=== PATIENT | male | born 1965 | race Caucasian/White ===

== ENCOUNTER 2017-04-17 23:24 | Inpatient (IN) | payer MEDICAID, OTHER ==
[~2017-04-17] VITALS: Ht 182.9 cm; Wt 100.2 kg
[~2017-04-17 23:24] MED LIST: NORCO; XANEX
[2017-04-18] VITALS (8 sets, daily range): BP systolic 98–124; BP diastolic 54–73
[2017-04-18 00:34] LABS: Hematocrit 46.4 % (41.0-53.0); Hemoglobin 13.5 g/dL (13.5-17.5); Mean Corpuscular Hemoglobin 21.3 pg (28.0-32.0); Mean Corpuscular Volume 73.6 fL (80.0-100.0); Platelet Count (auto) 338 10^3/uL (140-450); Red Blood Cells 6.31 10^6/uL (4.5-5.90)
[2017-04-18 00:39] LABS: Red Cell Distribution Width 21.3 % (11.8-14.3)
[2017-04-18 00:45] LABS: Albumin 2.8 g/dL (3.4-5.0); BUN/Creatinine Ratio 26.1; Magnesium 2.7 mg/dL (1.6-2.6); Potassium 4.9 mmol/L (3.5-5.1)
[2017-04-18 00:54] LABS: Bilirubin, Total 3.1 mg/dL (0.2-1.0); Total Protein 7.4 g/dL (6.4-8.2)
[2017-04-18 00:56] LABS: Basophils % (manual) 0 (0.0-2.0); Blast Cells 0; Promyelocytes % 0; Reactive Lymphocytes 0
[2017-04-18 00:59] LABS: Band Neutrophils % (manual) 10; Eosinophils % (manual) 1 (0-7); Lymphocytes % (manual) 8 (10.0-50.0); Metamyelocytes % 1; Monocytes % (manual) 8 (0-12); Myelocytes % 2
[2017-04-18] MEDS ORDERED: SODIUM CHLORIDE 0.9% 1,000 ML IV ONE ×3 (01:45→09:15)
[2017-04-18] MEDS ORDERED: cefTRIAXone 1GM/10ml IVPUSH 10 ML IV ONE (02:15)
[2017-04-18 02:19] LABS: Amylase 31 U/L (25-115); Lipase 440 U/L (73-393)
[2017-04-18] MEDS ORDERED: FUROSEMIDE 20 MG/2 ML VIAL IV ONE (05:45)
[2017-04-18] MEDS ORDERED: SPIRONOLACTONE 25 MG TAB PO ONE (05:45)
[2017-04-18 07:01] LABS: Urine Bacteria FEW /hpf (None Seen); Urine Blood Negative /uL (Negative); Urine Hyaline Cast FEW /lpf (0 - 2); Urine Specific Gravity 1.014 (1.001-1.035); Urine WBC 3 /hpf (0 - 3)
[2017-04-18 07:10] LABS: Alcohol, Urine < 3.0 mg/dL (0-5); Amphetamine Screen, Urine NEGATIVE (NEGATIVE); Barbiturate Scree,Urine NEGATIVE (NEGATIVE); Benzodiazephine Screen, Urine POSITIVE (NEGATIVE); Cannabinoid Screen, Urine POSITIVE (NEGATIVE); Cocaine Screen, Urine NEGATIVE (NEGATIVE); Opiate Scree,Urine POSITIVE (NEGATIVE); Phencyclidine Screen, Urine NEGATIVE (NEGATIVE)
[2017-04-18] MEDS ORDERED: SODIUM CHLORIDE 0.9% 1,000 ML IV SCH (09:15)
[2017-04-18] MEDS ORDERED: PANTOPRAZOLE 40 MG/10 ML VIAL IV ONE (09:15)
[2017-04-18] MEDS ORDERED: AZITHROMYCIN 500MG/ 250ML 250 ML IV ONE (09:15)
[2017-04-18] MEDS ORDERED: PIPERACILLIN-TAZOB 2.25GM 50 ML IV ONE (09:15)
[2017-04-18] MEDS ORDERED: GASTROGRAFIN 30 ML SOL ONE (09:31)
[2017-04-18 09:55] LABS: INR 1.6 (0.9-1.15); Prothrombin Time 17.5 sec (9.37-12.3)
[2017-04-18] MEDS: LINEZOLID 600MG/300ML 300 ML IV SCH (12:54)
[2017-04-18] MEDS ORDERED: MORPHINE SULFATE 4 MG/ML SYR/VIAL IV PRN (14:30)
[2017-04-18] MEDS ORDERED: ALBUTEROL SULF 2.5 MG/0.5ML(0.5%) NEB SOLN NEB PRN (14:30)
[2017-04-18] MEDS ORDERED: NITROGLYCERIN 0.4 MG SL TAB SL PRN (14:30)
[2017-04-18] MEDS ORDERED: LACTULOSE 20Gm/30ML SOLN PO PRN (14:30)
[2017-04-18] MEDS ORDERED: OSELTAMIVIR 75 MG CAP PO ONE (14:30)
[2017-04-18] MEDS ORDERED: OSELTAMIVIR 30 MG CAP PO SCH (14:45)
[2017-04-18] MEDS ORDERED: THIAMINE HCL 100 MG/ML 2ML VIAL IV ONE (15:15)
[2017-04-18] MEDS: PIPERACILLIN-TAZOB 2.25GM 50 ML IV SCH ×2 (16:31→21:51)
[2017-04-18] MEDS: ALBUTEROL SULF 2.5 MG/0.5ML(0.5%) NEB SOLN NEB SCH (18:00)
[2017-04-18] MEDS: IPRATROPIUM BROM 0.5 MG/2.5ML INH SOL NEB SCH (18:00)
[2017-04-18] MEDS ORDERED: SODIUM CHL 3% 500 ML IV ONE (19:45)
[2017-04-18 21:52] LABS: Hemoglobin 13.1 g/dL (13.5-17.5)
[2017-04-18 21:54] LABS: Hematocrit 44.1 % (41.0-53.0); Mean Corpuscular Hemoglobin 21.8 pg (28.0-32.0); Mean Corpuscular Hgb Conc. 29.7 g/dL (32.0-36.0); Mean Corpuscular Volume 73.6 fL (80.0-100.0); Platelet Count (auto) 303 10^3/uL (140-450); Red Blood Cells 5.99 10^6/uL (4.5-5.90); White Blood Cell 19.9 10^3/uL (4.4-10.8)
[2017-04-18] MEDS ORDERED: ALBUMIN 25% 100 ML IV SCH (22:00)
[2017-04-18 22:05] LABS: Calcium 7.9 mg/dL (8.5-10.1); Potassium 4.7 mmol/L (3.5-5.1)
[2017-04-18 22:13] LABS: BUN/Creatinine Ratio 35.1
[2017-04-18 23:16] LABS: Red Cell Distribution Width 21.1 % (11.8-14.3)
[2017-04-18 23:20] LABS: Basophils % (manual) 0 (0.0-2.0); Blast Cells 0; Promyelocytes % 0; Reactive Lymphocytes 0
[2017-04-18 23:22] LABS: Band Neutrophils % (manual) 12; Eosinophils % (manual) 1 (0-7); Lymphocytes % (manual) 14 (10.0-50.0); Metamyelocytes % 2; Monocytes % (manual) 4 (0-12); Myelocytes % 1
[2017-04-19] VITALS (36 sets, daily range): BP systolic 101–135; BP diastolic 51–107
[2017-04-19] MEDS: LINEZOLID 600MG/300ML 300 ML IV SCH ×2 (00:24→11:56)
[2017-04-19] MEDS: ALBUTEROL SULF 2.5 MG/0.5ML(0.5%) NEB SOLN NEB SCH ×4 (00:25→18:38)
[2017-04-19] MEDS: IPRATROPIUM BROM 0.5 MG/2.5ML INH SOL NEB SCH ×4 (00:25→18:39)
[2017-04-19] MEDS: PIPERACILLIN-TAZOB 2.25GM 50 ML IV SCH ×4 (03:41→21:31)
[2017-04-19] MEDS: ALBUMIN 25% 50 ML IV SCH ×3 (06:00→22:17)
[2017-04-19 06:03] LABS: Basophils # (auto) 0.1 uL; Eosinophils # (auto) 0.5 uL; Eosinophils % (auto) 2.6 % (0.0-7.0); Lymphocytes # (auto) 1.2 uL; Lymphocytes % (auto) 7.1 % (10.0-50.0); Monocytes # (auto) 1.1 uL
[2017-04-19 06:06] LABS: Albumin 2.4 g/dL (3.4-5.0); Anion Gap 5 (5-15); Basophils % (auto) 0.5 % (0.0-2.0); Blood Urea Nitrogen 48 mg/dL (7-18); Calcium 7.9 mg/dL (8.5-10.1); Carbon Dioxide 31 mmol/L (21-32); Chloride 90 mmol/L (98-107); Glucose 98 mg/dL (74-106); Hematocrit 43.4 % (41.0-53.0); Hemoglobin 12.7 g/dL (13.5-17.5); Mean Corpuscular Hemoglobin 21.5 pg (28.0-32.0); Mean Corpuscular Hgb Conc. 29.4 g/dL (32.0-36.0); Mean Corpuscular Volume 73.3 fL (80.0-100.0); Monocytes % (auto) 6.3 % (0.0-12.0); Neutrophils # (auto) 14.3 uL; Neutrophils % (auto) 83.5 % (37.0-80.0); Nucleated Red Blood Cells % 2.3 %; Platelet Count (auto) 313 10^3/uL (140-450); Potassium 4.3 mmol/L (3.5-5.1); Red Blood Cells 5.92 10^6/uL (4.5-5.90); Sodium 126 mmol/L (136-145); White Blood Cell 17.1 10^3/uL (4.4-10.8)
[2017-04-19 06:08] LABS: Aspartate Aminotransferase 882 U/L (15-37); BUN/Creatinine Ratio 44.9; GFR African American 94 mL/min; GFR Non-African American 77 mL/min
[2017-04-19 06:15] LABS: Red Cell Distribution Width 21.1 % (11.8-14.3)
[2017-04-19 06:19] LABS: Alanine Aminotransferase 1429 U/L (16-61); Alkaline Phosphatase 102 U/L (45-117); Bilirubin, Total 2.4 mg/dL (0.2-1.0); Total Protein 6.5 g/dL (6.4-8.2)
[2017-04-19] MEDS: AZITHROMYCIN 500MG/ 250ML 250 ML IV SCH (09:04)
[2017-04-19 09:38] LABS: Hepatitis B Surface Antigen Negative (Negative)
[2017-04-19] MEDS: PANTOPRAZOLE 40 MG/10 ML VIAL IV SCH (09:47)
[2017-04-19] MEDS: THIAMINE HCL 100 MG/ML 2ML VIAL IV SCH (09:47)
[2017-04-19 10:01] LABS: Hepatitis B Core IgM Negative; Hepatitis C Antibody Negative (Negative)
[2017-04-19 10:03] LABS: Hepatitis A Ab IgM Negative
[2017-04-19 13:45] LABS: Albumin 2.6 g/dL (3.4-5.0); BUN/Creatinine Ratio 37.1; Calcium 7.8 mg/dL (8.5-10.1)
[2017-04-19 13:55] LABS: Bilirubin, Total 2.4 mg/dL (0.2-1.0); Total Protein 6.7 g/dL (6.4-8.2)
[2017-04-19 19:02] LABS: BUN/Creatinine Ratio 35.2; Calcium 7.3 mg/dL (8.5-10.1); Potassium 4.2 mmol/L (3.5-5.1)
[2017-04-20] VITALS: BP 117/59
[2017-04-20] MEDS: IPRATROPIUM BROM 0.5 MG/2.5ML INH SOL NEB SCH ×4 (00:43→18:51)
[2017-04-20] MEDS: ALBUTEROL SULF 2.5 MG/0.5ML(0.5%) NEB SOLN NEB SCH ×4 (00:43→18:51)
[2017-04-20] MEDS: PIPERACILLIN-TAZOB 2.25GM 50 ML IV SCH ×4 (03:56→21:18)
[2017-04-20 04:00] VITALS: BP 114/72
[2017-04-20 05:04] LABS: Platelet Count (auto) 260 10^3/uL (140-450)
[2017-04-20 05:07] LABS: Hematocrit 43.2 % (41.0-53.0); Hemoglobin 12.4 g/dL (13.5-17.5); Mean Corpuscular Hemoglobin 21.2 pg (28.0-32.0); Mean Corpuscular Hgb Conc. 28.6 g/dL (32.0-36.0); Red Blood Cells 5.84 10^6/uL (4.5-5.90); White Blood Cell 16.9 10^3/uL (4.4-10.8)
[2017-04-20 05:15] LABS: Red Cell Distribution Width 21.1 % (11.8-14.3)
[2017-04-20 05:17] LABS: Basophils % (manual) 0 (0.0-2.0); Blast Cells 0; Myelocytes % 0; Promyelocytes % 0; Reactive Lymphocytes 0
[2017-04-20 05:22] LABS: Albumin 2.8 g/dL (3.4-5.0); BUN/Creatinine Ratio 29.4; Calcium 7.5 mg/dL (8.5-10.1); Magnesium 2.9 mg/dL (1.6-2.6)
[2017-04-20 05:27] LABS: Bilirubin, Total 2.3 mg/dL (0.2-1.0); Total Protein 6.7 g/dL (6.4-8.2)
[2017-04-20 06:08] LABS: Band Neutrophils % (manual) 3; Eosinophils % (manual) 3 (0-7); Lymphocytes % (manual) 8 (10.0-50.0); Metamyelocytes % 1; Monocytes % (manual) 8 (0-12)
[2017-04-20] MEDS: ALBUMIN 25% 50 ML IV SCH (06:26)
[2017-04-20 08:00] VITALS: BP 115/62
[2017-04-20] MEDS: AZITHROMYCIN 500MG/ 250ML 250 ML IV SCH (09:00)
[2017-04-20] MEDS: THIAMINE HCL 100 MG/ML 2ML VIAL IV SCH (10:00)
[2017-04-20] MEDS: PANTOPRAZOLE 40 MG/10 ML VIAL IV SCH (10:17)
[2017-04-20] MEDS: THIAMINE HCL 100 MG TAB PO SCH (10:45)
[2017-04-20 12:00] VITALS: BP 137/68
[2017-04-20] MEDS: ENOXAPARIN SOD 40 MG/0.4 ML SYRINGE SC SCH (12:45)
[2017-04-20] MEDS: methylPREDNISolone SOD SUCC 40 MG/ML VL IV SCH ×2 (12:45→21:19)
[2017-04-20 13:44] LABS: Cholesterol < 50 mg/dL (< 200); HDL Cholesterol 9 mg/dL (40-59); LDL Cholesterol 36 mg/dL (< 100); Triglycerides 132 mg/dL (< 150)
[2017-04-20] MEDS: LINEZOLID 600MG/300ML 300 ML IV SCH ×2 (13:56)
[2017-04-20] MEDS ORDERED: LISI40TA PO (14:24)
[2017-04-20] MEDS ORDERED: AML5T PO (14:24)
[2017-04-20] MEDS ORDERED: LORA-622 PO (14:24)
[2017-04-20] MEDS ORDERED: TRIA50TA2 PO (14:24)
[2017-04-20] MEDS ORDERED: PANT40TA2 PO (14:24)
[2017-04-20] MEDS ORDERED: HYDR-4683 PO (14:24)
[2017-04-20] MEDS ORDERED: ALPR-229 PO (14:24)
[2017-04-20 16:00] VITALS: BP 146/93
[2017-04-20] MEDS: chlordiazePOXIDE HCL 25 MG CAP PO PRN (21:19)
[2017-04-20 22:00] VITALS: BP 136/80
[2017-04-21] MEDS: LINEZOLID 600MG/300ML 300 ML IV SCH ×2 (00:09→13:02)
[2017-04-21] MEDS: chlordiazePOXIDE HCL 25 MG CAP PO PRN ×2 (01:52→13:28)
[2017-04-21] MEDS: IPRATROPIUM BROM 0.5 MG/2.5ML INH SOL NEB SCH ×4 (02:37→20:01)
[2017-04-21] MEDS: ALBUTEROL SULF 2.5 MG/0.5ML(0.5%) NEB SOLN NEB SCH ×4 (02:37→20:01)
[2017-04-21] MEDS: PIPERACILLIN-TAZOB 2.25GM 50 ML IV SCH ×4 (03:16→20:32)
[2017-04-21 05:00] VITALS: BP 130/73
[2017-04-21 06:25] LABS: Hematocrit 42.8 % (41.0-53.0)
[2017-04-21 06:29] LABS: Hemoglobin 12.7 g/dL (13.5-17.5); Mean Corpuscular Hemoglobin 21.8 pg (28.0-32.0); Mean Corpuscular Hgb Conc. 29.6 g/dL (32.0-36.0); Mean Corpuscular Volume 73.5 fL (80.0-100.0); Platelet Count (auto) 252 10^3/uL (140-450); Red Blood Cells 5.82 10^6/uL (4.5-5.90); White Blood Cell 14.6 10^3/uL (4.4-10.8)
[2017-04-21 06:38] LABS: Albumin 2.8 g/dL (3.4-5.0); BUN/Creatinine Ratio 18.2; Bilirubin, Total 2.1 mg/dL (0.2-1.0); Calcium 7.9 mg/dL (8.5-10.1); Total Protein 7.1 g/dL (6.4-8.2)
[2017-04-21 06:46] LABS: Red Cell Distribution Width 21.3 % (11.8-14.3)
[2017-04-21 06:47] LABS: Basophils % (manual) 0 (0.0-2.0); Blast Cells 0; Eosinophils % (manual) 0 (0-7); INR 1.19 (0.9-1.15); Myelocytes % 0; Promyelocytes % 0; Reactive Lymphocytes 0
[2017-04-21 08:00] VITALS: BP 141/76
[2017-04-21 09:17] LABS: Band Neutrophils % (manual) 3; Monocytes % (manual) 3 (0-12)
[2017-04-21 09:18] LABS: Lymphocytes % (manual) 2 (10.0-50.0); Metamyelocytes % 1
[2017-04-21] MEDS: AZITHROMYCIN 500MG/ 250ML 250 ML IV SCH (09:19)
[2017-04-21] MEDS: PANTOPRAZOLE 40 MG/10 ML VIAL IV SCH (11:12)
[2017-04-21] MEDS: methylPREDNISolone SOD SUCC 40 MG/ML VL IV SCH ×2 (11:12→22:04)
[2017-04-21] MEDS: THIAMINE HCL 100 MG TAB PO SCH (11:13)
[2017-04-21] MEDS: ENOXAPARIN SOD 40 MG/0.4 ML SYRINGE SC SCH (11:15)
[2017-04-21 11:57] VITALS: BP 144/81
[2017-04-21] MEDS: OXYCODONE HCL 5MG TAB PO PRN ×2 (13:28→20:32)
[2017-04-21 16:44] VITALS: BP 144/80
[2017-04-21 20:17] VITALS: BP 144/80
[2017-04-21 22:00] VITALS: BP 139/80
[2017-04-21 22:43] LABS: Urine Bacteria NONE SEEN /hpf (None Seen); Urine Blood Negative /uL (Negative); Urine Specific Gravity 1.009 (1.001-1.035); Urine WBC 3 /hpf (0 - 3)
[2017-04-21 22:59] LABS: Protein, Urine 18.1 mg/dL (0.0-11.9)
[2017-04-22] MEDS: IPRATROPIUM BROM 0.5 MG/2.5ML INH SOL NEB SCH ×4 (00:08→18:32)
[2017-04-22] MEDS: ALBUTEROL SULF 2.5 MG/0.5ML(0.5%) NEB SOLN NEB SCH ×4 (00:08→18:32)
[2017-04-22] MEDS: LINEZOLID 600MG/300ML 300 ML IV SCH (00:10)
[2017-04-22] MEDS: chlordiazePOXIDE HCL 25 MG CAP PO PRN ×2 (00:16→10:20)
[2017-04-22] MEDS: OXYCODONE HCL 5MG TAB PO PRN ×4 (01:34→21:08)
[2017-04-22] MEDS: PIPERACILLIN-TAZOB 2.25GM 50 ML IV SCH ×4 (02:39→21:08)
[2017-04-22 05:00] VITALS: BP 138/79
[2017-04-22 05:27] LABS: Hemoglobin 12.7 g/dL (13.5-17.5)
[2017-04-22 05:28] LABS: Hematocrit 43.7 % (41.0-53.0); Mean Corpuscular Hemoglobin 21.5 pg (28.0-32.0); Mean Corpuscular Volume 74.3 fL (80.0-100.0); Platelet Count (auto) 242 10^3/uL (140-450); Red Blood Cells 5.89 10^6/uL (4.5-5.90)
[2017-04-22 05:31] LABS: Red Cell Distribution Width 20.8 % (11.8-14.3)
[2017-04-22 05:33] LABS: Band Neutrophils % (manual) 0; Basophils % (manual) 0 (0.0-2.0); Blast Cells 0; Eosinophils % (manual) 0 (0-7); Metamyelocytes % 0; Myelocytes % 0; Promyelocytes % 0; Reactive Lymphocytes 0
[2017-04-22 05:37] LABS: BUN/Creatinine Ratio 20.3; Calcium 8.1 mg/dL (8.5-10.1)
[2017-04-22 05:39] LABS: Potassium 5.6 mmol/L (3.5-5.1)
[2017-04-22 05:51] LABS: Albumin 2.7 g/dL (3.4-5.0); Bilirubin, Total 1.5 mg/dL (0.2-1.0)
[2017-04-22 06:25] LABS: Lymphocytes % (manual) 3 (10.0-50.0); Monocytes % (manual) 4 (0-12)
[2017-04-22] MEDS ORDERED: SODIUM POLYSTYRENE SULF 15GM/60ML SUSP PO ONE ×2 (06:45→09:45)
[2017-04-22 08:00] VITALS: BP 151/88
[2017-04-22 08:25] VITALS: BP 151/88
[2017-04-22] MEDS: AZITHROMYCIN 500MG/ 250ML 250 ML IV SCH (10:01)
[2017-04-22] MEDS: PANTOPRAZOLE 40 MG/10 ML VIAL IV SCH (10:02)
[2017-04-22] MEDS: methylPREDNISolone SOD SUCC 40 MG/ML VL IV SCH ×2 (10:02→22:10)
[2017-04-22] MEDS: SODIUM CHLORIDE 0.9% 1,000 ML IV SCH ×2 (10:02→19:45)
[2017-04-22] MEDS: ENOXAPARIN SOD 40 MG/0.4 ML SYRINGE SC SCH (10:03)
[2017-04-22] MEDS: THIAMINE HCL 100 MG TAB PO SCH (10:03)
[2017-04-22 11:48] VITALS: BP 141/93
[2017-04-22 17:28] VITALS: BP 141/80
[2017-04-22 22:00] VITALS: BP 150/86
[2017-04-23] MEDS: OXYCODONE HCL 5MG TAB PO PRN ×2 (00:52→05:50)
[2017-04-23] MEDS: IPRATROPIUM BROM 0.5 MG/2.5ML INH SOL NEB SCH ×3 (01:08→11:30)
[2017-04-23] MEDS: ALBUTEROL SULF 2.5 MG/0.5ML(0.5%) NEB SOLN NEB SCH ×3 (01:08→11:30)
[2017-04-23] MEDS: PIPERACILLIN-TAZOB 2.25GM 50 ML IV SCH ×2 (02:30→08:24)
[2017-04-23 05:00] VITALS: BP 147/86
[2017-04-23] MEDS: SODIUM CHLORIDE 0.9% 1,000 ML IV SCH (05:50)
[2017-04-23 06:19] LABS: Basophils # (auto) 0 uL; Eosinophils # (auto) 0 uL; Lymphocytes # (auto) 0.3 uL; Monocytes # (auto) 0.5 uL; Nucleated Red Blood Cells % 0.9 %
[2017-04-23 06:26] LABS: Basophils % (auto) 0.2 % (0.0-2.0); Hematocrit 44.1 % (41.0-53.0); Hemoglobin 12.7 g/dL (13.5-17.5); Lymphocytes % (auto) 1.9 % (10.0-50.0); Mean Corpuscular Hemoglobin 21.6 pg (28.0-32.0); Mean Corpuscular Hgb Conc. 28.9 g/dL (32.0-36.0); Mean Corpuscular Volume 74.7 fL (80.0-100.0); Monocytes % (auto) 3.3 % (0.0-12.0); Neutrophils # (auto) 13.8 uL; Neutrophils % (auto) 94.6 % (37.0-80.0); Platelet Count (auto) 275 10^3/uL (140-450); Red Cell Distribution Width 21.5 % (11.8-14.3); White Blood Cell 14.5 10^3/uL (4.4-10.8)
[2017-04-23 06:41] LABS: Albumin 2.7 g/dL (3.4-5.0); BUN/Creatinine Ratio 26.2; Bilirubin, Direct 0.8 mg/dL (0-0.2); Bilirubin, Total 1.2 mg/dL (0.2-1.0); Calcium 8.2 mg/dL (8.5-10.1); Potassium 4.4 mmol/L (3.5-5.1); Total Protein 6.6 g/dL (6.4-8.2)
[2017-04-23 08:00] VITALS: BP 141/84
[2017-04-23 08:35] VITALS: BP 141/84
[2017-04-23] MEDS: methylPREDNISolone SOD SUCC 40 MG/ML VL IV SCH (09:38)
[2017-04-23] MEDS: PANTOPRAZOLE 40 MG/10 ML VIAL IV SCH (09:38)
[2017-04-23] MEDS: AZITHROMYCIN 500MG/ 250ML 250 ML IV SCH (09:38)
[2017-04-23] MEDS: THIAMINE HCL 100 MG TAB PO SCH (09:39)
[2017-04-23] MEDS: ENOXAPARIN SOD 40 MG/0.4 ML SYRINGE SC SCH (09:39)
== END 2017-04-23 13:00 | disposition home or self-care (01) | DRG 720 ==
LOC: EDBD 23:24 → ER 23:24 → TELE 23:25 → DOU IN ICU 04-20 00:01 → TELE-CENTR 04-20 17:29
PROVIDERS: ADMIT Internal Medicine; ATTEND Family Medicine
PROC: 5A09357 Assistance with Respiratory Ventilation, Less than 24 Consecutive Hours, Continuous Positive Airway Pressure (ICD-10-PCS; principal; 2017-04-18)
DX: A41.9 Sepsis, unspecified organism (principal); J96.21 Acute and chronic respiratory failure with hypoxia; N17.0 Acute kidney failure with tubular necrosis; J18.9 Pneumonia, unspecified organism; R18.8 Other ascites; I11.0 Hypertensive heart disease with heart failure; J44.0 Chronic obstructive pulmonary disease with (acute) lower respiratory infection; I50.9 Heart failure, unspecified; K85.90 Acute pancreatitis without necrosis or infection, unspecified; J44.1 Chronic obstructive pulmonary disease with (acute) exacerbation; E87.1 Hypo-osmolality and hyponatremia; D64.9 Anemia, unspecified; E66.01 Morbid (severe) obesity due to excess calories; E78.5 Hyperlipidemia, unspecified; F17.210 Nicotine dependence, cigarettes, uncomplicated; F41.9 Anxiety disorder, unspecified; K59.00 Constipation, unspecified; S30.1XXA Contusion of abdominal wall, initial encounter; F10.10 Alcohol abuse, uncomplicated; H60.91 Unspecified otitis externa, right ear; X58.XXXA Exposure to other specified factors, initial encounter; K40.90 Unilateral inguinal hernia, without obstruction or gangrene, not specified as recurrent; K75.9 Inflammatory liver disease, unspecified; K74.60 Unspecified cirrhosis of liver; F12.10 Cannabis abuse, uncomplicated; K76.0 Fatty (change of) liver, not elsewhere classified; Z80.52 Family history of malignant neoplasm of bladder; Z82.49 Family history of ischemic heart disease and other diseases of the circulatory system; Z68.30 Body mass index [BMI] 30.0-30.9, adult; Z88.6 Allergy status to analgesic agent; Z88.5 Allergy status to narcotic agent; Y93.89 Activity, other specified; Y92.89 Other specified places as the place of occurrence of the external cause; Y99.8 Other external cause status
CPT/HCPCS: 36415; 36600; 51702; 71045; 74176; 76705; 76775; 78582; 80048; 80053; 80061; 80074; 80076; 80307; 80329; 81001; 82140; 82150; 82550; 82570; 82805; 83605; 83690; 83735; 83880; 83935; 84156; 84300; 84443; 84484; 85007; 85025; 85027; 85379; 85610; 85652; 86141; 87040; 87081; 87086; 87804; 93005; 93306; 93970; 94640; 94660; 96361; 96365; 96366; 96368; 96375; 97116; 97163; 97530; C9113; J2543